=== PATIENT | male | born 1975 | race Caucasian/White ===

== ENCOUNTER 2019-02-18 07:04 | Emergency (ER) | payer SELFPAY ==
[~2019-02-18] VITALS: Ht 182.9 cm; Wt 108.9 kg
[2019-02-18] MEDS ORDERED: TAMSULOSIN 0.4 MG CAP.ER.24H. PO ONE (08:30)
[2019-02-18] MEDS ORDERED: MORPHINE SULFATE 4 MG/ML VIAL. IV ONE (08:30)
[2019-02-18] MEDS ORDERED: IV NORMAL SALINE 1000ML BAG 1,000 ML IV ONE (08:30)
[2019-02-18] MEDS ORDERED: KETOROLAC 15 MG/ML VIAL. IV ONE (08:30)
[2019-02-18] MEDS ORDERED: ONDANSETRON PF 4 MG/2 ML VIAL. IV ONE (08:30)
--- NOTE | 2019-02-18 08:30 | PHYS DOC ---
Adult General Chief Complaint Chief Complaint: FLANK PAIN HPI HPI Patient is a 43 year old male with right flank pain has been ongoing for several days. The patient states that the last time he was able to urinate was last night. He has a history of kidney stones. Rates his pain as 10 out of 10 and states it sharp, states that he is not taken any pain medicine at home. Review of Systems Review of Systems Constitutional: Denies fever or chills [] Eyes: Denies change in visual acuity, redness, or eye pain [] HENT: Denies nasal congestion or sore throat [] Respiratory: Denies cough or shortness of breath [] Cardiovascular: No additional information not addressed in HPI [] GI: Reports R flank pain, mild nausea, Denies vomiting, bloody stools or diarrhe a [] : Denies dysuria or hematuria [] Musculoskeletal: Denies back pain or joint pain [] Integument: Denies rash or skin lesions [] Neurologic: Denies headache, focal weakness or sensory changes [] Endocrine: Denies polyuria or polydipsia [] Complete systems were reviewed and found to be within normal limits, except as documented in this note. Current Medications Current Medications Current Medications Medications (Trade) Dose Ordered Sig/Suraj Start Time Stop Time Status Last Admin Dose Admin Ketorolac Tromethamine (Toradol 15mg Vial) 15 mg 1X ONCE 02/18/19 08:30 02/18/19 08:38 DC 02/18/19 08:58 15 MG Morphine Sulfate (Morphine Sulfate) 4 mg 1X ONCE 02/18/19 08:30 02/18/19 08:38 DC 02/18/19 08:58 4 MG Ondansetron HCl (Zofran) 4 mg 1X ONCE 02/18/19 08:30 02/18/19 08:38 DC 02/18/19 08:58 4 MG Sodium Chloride 1,000 ml @ 1,000 mls/hr 1X ONCE 02/18/19 08:30 02/18/19 09:29 DC 02/18/19 08:58 1,000 MLS/HR Tamsulosin HCl (Flomax) 0.4 mg 1X ONCE 02/18/19 08:30 02/18/19 08:38 DC 02/18/19 08:58 0.4 MG Allergies Allergies Allergies Coded Allergies Type Severity Reaction Last Updated Verified No Known Drug Allergies 02/18/19 No Physical Exam Physical Exam Constitutional: Well developed, well nourished, acute distress, non-toxic appearance. [] HENT: Normocephalic, atraumatic, bilateral external ears normal, oropharynx moist, no oral exudates, nose normal. [] Eyes: PERRLA, EOMI, conjunctiva normal, no discharge. [] Neck: Normal range of motion, no tenderness, supple, no stridor. [] Cardiovascular:Heart rate regular rhythm, no murmur Lungs & Thorax: Bilateral breath sounds clear to auscultation [] Abdomen: Bowel sounds normal, soft, R flank tenderness, no masses, no pulsatile masses. [] Skin: Warm, dry, no erythema, no rash Back: R flank tenderness, has R CVA tenderness. [] Extremities: No tenderness, no cyanosis, no clubbing, ROM intact, no edema. [] Neurologic: Alert and oriented X 3, normal motor function, normal sensory function, no focal deficits noted. [] Psychologic: Affect normal, judgement normal, mood normal. [] Current Patient Data Vital Signs Vital Signs Date Time Temp Pulse Resp B/P (MAP) Pulse Ox O2 Delivery O2 Flow Rate FiO2 02/18/19 08:58 16 100 Room Air 02/18/19 08:16 98.4 71 196/99 (131) 98.4 Lab Values Laboratory Tests Test 02/18/19 08:45 02/18/19 09:25 White Blood Count 11.8 x10^3/uL (4.0-11.0) H Red Blood Count 4.72 x10^6/uL (4.30-5.70) Hemoglobin 14.8 g/dL (13.0-17.5) Hematocrit 43.1 % (39.0-53.0) Mean Corpuscular Volume 91 fL (79-100) Mean Corpuscular Hemoglobin 31 pg (25-35) Mean Corpuscular Hemoglobin Concent 34 g/dL (31-37) Red Cell Distribution Width 12.7 % (11.5-14.5) Platelet Count 212 x10^3/uL (140-400) Neutrophils (%) (Auto) 83 % (31-73) H Lymphocytes (%) (Auto) 10 % (24-48) L Monocytes (%) (Auto) 6 % (0-9) Eosinophils (%) (Auto) 1 % (0-3) Basophils (%) (Auto) 0 % (0-3) Neutrophils # (Auto) 9.8 x10^3/uL (1.8-7.7) H Lymphocytes # (Auto) 1.2 x10^3/uL (1.0-4.8) Monocytes # (Auto) 0.8 x10^3/uL (0.0-1.1) Eosinophils # (Auto) 0.1 x10^3/uL (0.0-0.7) Basophils # (Auto) 0.0 x10^3/uL (0.0-0.2) Sodium Level 141 mmol/L (136-145) Potassium Level 4.2 mmol/L (3.5-5.1) Chloride Level 102 mmol/L (98-107) Carbon Dioxide Level 30 mmol/L (21-32) Anion Gap 9 (6-14) Blood Urea Nitrogen 16 mg/dL (8-26) Creatinine 1.1 mg/dL (0.7-1.3) Estimated GFR (Cockcroft-Gault) 73.1 BUN/Creatinine Ratio 15 (6-20) Glucose Level 107 mg/dL (70-99) H Calcium Level 9.1 mg/dL (8.5-10.1) Total Bilirubin 0.5 mg/dL (0.2-1.0) Aspartate Amino Transferase (AST) 31 U/L (15-37) Alanine Aminotransferase (ALT) 45 U/L (16-63) Alkaline Phosphatase 59 U/L (46-116) Total Protein 7.3 g/dL (6.4-8.2) Albumin 3.7 g/dL (3.4-5.0) Albumin/Globulin Ratio 1.0 (1.0-1.7) Lipase 78 U/L (73-393) Urine Collection Type Unknown Urine Color Yellow Urine Clarity Clear Urine pH 7.5 Urine Specific Roper 1.010 Urine Protein Negative mg/dL (NEG-TRACE) Urine Glucose (UA) Negative mg/dL (NEG) Urine Ketones (Stick) Negative mg/dL (NEG) Urine Blood Small (NEG) Urine Nitrite Negative (NEG) Urine Bilirubin Negative (NEG) Urine Urobilinogen Dipstick 1.0 mg/dL (0.2 mg/dL) Urine Leukocyte Esterase Negative (NEG) Urine RBC 11-20 /HPF (0-2) Urine WBC Occ /HPF (0-4) Urine Squamous Epithelial Cells Occ /LPF Urine Bacteria 0 /HPF (0-FEW) Urine Mucus Slight /LPF Laboratory Tests 02/18/19 08:45 Laboratory Tests 02/18/19 08:45 EKG EKG [] Radiology/Procedures Radiology/Procedures [][facility] [address] [place] [address] IMAGING REPORT Signed PATIENT: SATISH SOLANO ACCOUNT: [id number] : 1975 LOCATION: ER AGE: 43 SEX: M EXAM STATUS: REG ER ORD. PHYSICIAN: KATI HAWKINS APRN REASON: R flank pain PROCEDURE: CT ABDOMEN PELVIS WO CONTRAST PQRS Compliance Statement: One or more of the following individualized dose reduction techniques were utilized for this examination: 1. Automated exposure control 2. Adjustment of the mA and/or kV according to patient size 3. Use of iterative reconstruction technique CT ABDOMEN PELVIS WO CONTRAST Clinical Indication: Right flank pain. Comparison: CT abdomen and pelvis without contrast, December 17, 2010. Technique: Helical CT imaging of the abdomen and pelvis is performed without IV or oral contrast. Findings: Evaluation of solid organs and bowel is limited without oral and IV contrast, decreasing sensitivity for detection of pathology. Lung bases are clear. Cardiac size normal. Cholelithiasis. There is an 11 mm hypodensity in segment 4A of the liver, incompletely characterized. There is an additional tiny hypodensity in the right hepatic lobe, too small to further characterize, image 49. The spleen is stable. Pancreas and adrenal glands, and abdominal aorta caliber are normal. There are multiple bilateral nonobstructing renal calculi. Largest calculus on the left measures 7 mm, largest on the right measures 7 mm. There is no left hydronephrosis. There is moderate right hydroureteronephrosis and perinephric stranding due to a 5 mm calculus in the proximal to mid ureter. The more distal right ureter is decompressed. Stomach unremarkable. Subcentimeter mesenteric lymph nodes. Mild haziness of the central mesentery, a nonspecific finding. No dilated small bowel. No colon wall thickening. The appendix is normal. The urinary bladder is normal. Prostate size normal. No pelvic free fluid. No acute bone abnormality. IMPRESSION: 1. Moderate right obstructive uropathy secondary to a 5 mm proximal to mid ureteral calculus. 2. Bilateral nonobstructing renal calculi. 3. Cholelithiasis. 4. Small hypodensity in the left hepatic lobe, incompletely characterized. Recommend further evaluation with outpatient MR abdomen with and without contrast. Electronically signed by: Allan Puentes MD (02/18/2019 9:38 AM) [id number] Course & Med Decision Making Course & Med Decision Making Pertinent Labs and Imaging studies reviewed. (See chart for details) Clinical exam suggests possible kidney stone. Will get labs, CT. Will give morphine, zofran, Toradol, and fluids. Will also give Flomax. Imaging shows 5 MM kidney stone. Labs are unremarkable. Will d/c home to follow up with urology. Dragon Disclaimer Dragon Disclaimer This electronic medical record was generated, in whole or in part, using a voice recognition dictation system. Departure Departure Impression: Primary Impression: Right nephrolithiasis Disposition: HOME, SELF-CARE Condition: STABLE Referrals: NO PCP (PCP) AZIZA MONTOYA MD Patient Instructions: Kidney Stones Additional Instructions: Thank you for visiting [facility]. We appreciate you trusting us with your care. If any additional problems come up don't hesitate to return to visit us. Please follow up with your primary care provider so they can plan additional care if needed and know about the problem that you had. If symptoms worsen come back to the Emergency Department. Any concerning symptoms that start such as chest pain, shortness of air, weakness or numbness on one side of the body, running high fevers or any other concerning symptoms return to the ER. Please strain urine and follow up with Urology. Please fill your medications at any pharmacy and follow the prescription instructions. Scripts Hydrocodone/Apap 5-325 (NORCO 5-325 TABLET) 1 Each Tablet 1 TAB PO PRN Q6HRS PRN for PAIN for 3 Days, #10 TAB 0 Refills Prov: KATI HAWKINS APRN 02/18/19 Ondansetron (ONDANSETRON ODT) 4 Mg Tab.rapdis 1 TAB PO PRN Q6-8HRS PRN for NAUSEA, #16 TAB Prov: KATI HAWKINS APRN 02/18/19 Tamsulosin Hcl (FLOMAX) 0.4 Mg Cap.er.24h 1 CAP PO DAILY, #30 CAP 11 Refills Prov: KAIT HAWKINS APRN 02/18/19 KATI HAWKINS APRN Feb 18, 2019 08:30
[2019-02-18 09:09] LABS: BASO % 0 % (0-3); EOS # 0.1 x10^3/uL (0.0-0.7); EOS % 1 % (0-3); HEMATOCRIT 43.1 % (39.0-53.0); HEMOGLOBIN 14.8 g/dL (13.0-17.5); LYMPH # 1.2 x10^3/uL (1.0-4.8); LYMPH % 10 % (24-48); MEAN CORPUSCULAR HEMOGLOBIN 31 pg (25-35); MEAN CORPUSCULAR HGB CONC 34 g/dL (31-37); MEAN CORPUSCULAR VOLUME 91 fL (79-100); MONO # 0.8 x10^3/uL (0.0-1.1); MONO % 6 % (0-9); NEUT # 9.8 x10^3/uL (1.8-7.7); NEUT % 83 % (31-73); PLATELET COUNT 212 x10^3/uL (140-400); RED BLOOD COUNT 4.72 x10^6/uL (4.30-5.70); RED CELL DISTRIBUTION WIDTH 12.7 % (11.5-14.5); WHITE BLOOD COUNT 11.8 x10^3/uL (4.0-11.0)
[2019-02-18 09:19] LABS: CALCIUM 9.1 mg/dL (8.5-10.1); CREATININE 1.1 mg/dL (0.7-1.3); GFR 73.1; POTASSIUM 4.2 mmol/L (3.5-5.1)
[2019-02-18 09:24] LABS: ALBUMIN 3.7 g/dL (3.4-5.0); TOTAL BILIRUBIN 0.5 mg/dL (0.2-1.0); TOTAL PROTEIN 7.3 g/dL (6.4-8.2)
[2019-02-18 09:35] LABS: BILIRUBIN,URINE NEGATIVE (NEG); CLARITY,URINE CLEAR; COLOR,URINE YELLOW; NITRITE,URINE NEGATIVE (NEG); PH,URINE 7.5; PROTEIN,URINE NEGATIVE (NEG-TRACE)
--- NOTE | 2019-02-18 09:41 | RAD ---
PQRS Compliance Statement: One or more of the following individualized dose reduction techniques were utilized for this examination: 1. Automated exposure control 2. Adjustment of the mA and/or kV according to patient size 3. Use of iterative reconstruction technique CT ABDOMEN PELVIS WO CONTRAST Clinical Indication: Right flank pain. Comparison: CT abdomen and pelvis without contrast, December 17, 2010. Technique: Helical CT imaging of the abdomen and pelvis is performed without IV or oral contrast. Findings: Evaluation of solid organs and bowel is limited without oral and IV contrast, decreasing sensitivity for detection of pathology. Lung bases are clear. Cardiac size normal. Cholelithiasis. There is an 11 mm hypodensity in segment 4A of the liver, incompletely characterized. There is an additional tiny hypodensity in the right hepatic lobe, too small to further characterize, image 49. The spleen is stable. Pancreas and adrenal glands, and abdominal aorta caliber are normal. There are multiple bilateral nonobstructing renal calculi. Largest calculus on the left measures 7 mm, largest on the right measures 7 mm. There is no left hydronephrosis. There is moderate right hydroureteronephrosis and perinephric stranding due to a 5 mm calculus in the proximal to mid ureter. The more distal right ureter is decompressed. Stomach unremarkable. Subcentimeter mesenteric lymph nodes. Mild haziness of the central mesentery, a nonspecific finding. No dilated small bowel. No colon wall thickening. The appendix is normal. The urinary bladder is normal. Prostate size normal. No pelvic free fluid. No acute bone abnormality. IMPRESSION: 1. Moderate right obstructive uropathy secondary to a 5 mm proximal to mid ureteral calculus. 2. Bilateral nonobstructing renal calculi. 3. Cholelithiasis. 4. Small hypodensity in the left hepatic lobe, incompletely characterized. Recommend further evaluation with outpatient MR abdomen with and without contrast. Electronically signed by: Allan Puentes MD (02/18/2019 9:38 AM) [id number]
[2019-02-18 09:47] LABS: SQUAMOUS EPITHELIAL CELL,UR OCC /LPF
[2019-02-18 09:48] LABS: BACTERIA,URINE 0 /HPF (0-FEW); WBC,URINE OCC /HPF (0-4)
[2019-02-18 10:00] VITALS: BP 172/102
[2019-02-18] MEDS ORDERED: ONDA4TAB12 PO (10:05)
[2019-02-18] MEDS ORDERED: TAMS0.4C97 PO (10:05)
[2019-02-18] MEDS ORDERED: HYDR-3164 PO (10:05)
== END 2019-02-18 10:25 | disposition home or self-care (01) ==
LOC: ER 07:04
DX: N20.2 Calculus of kidney with calculus of ureter (principal); K80.20 Calculus of gallbladder without cholecystitis without obstruction
CPT/HCPCS: 36415; 74176; 80053; 81001; 83690; 85025; 96374; 96375; 99285; J1885; J2270; J2405; J7030